=== PATIENT | female | born 1955 | race Caucasian/White ===

== ENCOUNTER 2020-07-31 13:54 | Outpatient (CLI) | payer MEDICARE, SELFPAY ==
--- NOTE | 2020-07-31 14:15 | USCV_ITS ---
Elizabeth Mercado Age: 64 Gender: F : 1955 Exam Date: 07/31/2020 14:23 Ordering Phys: Mick Ortega M.D ([email or web address]) Technologist: Socorro Greawl Exam Location: [facility] [place] Indication: SHORTNESS OF BREATH BP: 125 / 63 HR: 84 Rhythm: Sinus Technical Quality: Adequate MEASUREMENTS (Male / Female) Normal Values 2D ECHO LV Diastolic Diameter PLAX 3.5 cm 4.2 - 5.9 / 3.9 - 5.3 cm LV Systolic Diameter PLAX 2.3 cm IVS Diastolic Thickness 1.1 cm 0.6 - 1.0 / 0.6 - 0.9 cm IVS Systolic Thickness 1.3 cm LVPW Diastolic Thickness 0.9 cm 0.6 - 1.0 / 0.6 - 0.9 cm LVPW Systolic Thickness 1.1 cm RV Chamber Size 2.7 cm LVOT Diameter 2.0 cm LV Ejection Fraction 2D Teich 66.1 % LV Ejection Fraction MOD 2C 59.5 % LV Ejection Fraction 2C AL 61.5 % LA Diameter 2.8 cm Aorta at Sinotubular Diameter 3.0 cm M-MODE LV Diastolic Diameter MM 3.2 cm 4.2 - 5.9 / 3.9 - 5.3 cm LV Systolic Diameter MM 2.0 cm LV Ejection Fraction MM Teich 68.8 % IVS Diastolic Thickness MM 1.2 cm 0.6 - 1.0 / 0.6 - 0.9 cm IVS Systolic Thickness MM 1.3 cm LVPW Diastolic Thickness MM 1.2 cm 0.6 - 1.0 / 0.6 - 0.9 cm LVPW Systolic Thickness MM 1.4 cm Aortic Annulus Diameter 2.6 cm LA Ao Ratio MM 1.1 MV E Point Septal Separation 0.2 cm DOPPLER AV Peak Velocity 95.0 cm/s LVOT Peak Velocity 87.0 cm/s AV Area Cont Eq vti 2.5 cm squared AV Area Cont Eq pk 2.9 cm squared MV Area PHT 5.0 cm squared Mitral E to A Ratio 1.2 MV E' Velocity 53.0 cm/s Mitral E to MV E' Ratio 7.5 Mitral E to LV E' Lateral Ratio 8.8 Mitral E to LV E' Septal Ratio 6.4 TR Peak Velocity 260.3 cm/s TR Peak Gradient 27.1 mmHg Right Atrial Pressure 3.0 mmHg Pulmonary Artery Systolic Pressu 30.1 mmHg PV Peak Velocity 59.0 cm/s RV Acceleration Time 0.1 s RV Ejection Time 0.2 s RV AcT/ET 0.5 FINDINGS Left Ventricle Normal left ventricular size. LV systolic function is normal with EF of 60-65%. No regional wall motion abnormalities.Normal diastolic function. Right Ventricle The right ventricle is normal in size and function. Right Atrium The right atrium is normal in size. Left Atrium The left atrium is normal in size. Mitral Valve Structurally normal mitral valve without significant stenosis or prolapse. There is trace mitral regurgitation. Aortic Valve Structurally normal aortic valve without significant sclerosis or stenosis. There is no aortic regurgitation. Tricuspid Valve Structurally normal tricuspid valve without significant stenosis or regurgitation. Insufficient TR to calculate RVSP Pulmonic Valve Structurally normal pulmonic valve without significant stenosis. There is no pulmonic regurgitation. Pericardium Normal pericardium without effusion. Aorta Normal ascending aorta dimension. CONCLUSIONS LV systolic function is normal with EF of 60-65% Diastolic function is normal Trace mitral regurgitation No comparison studies are available. Mick Ortega MD (Electronically Signed) Final Date: 06 August 2020 19:34 S
== END 2020-07-31 13:55 | disposition home or self-care (01) ==
LOC: US 14:01
PROVIDERS: PCP Nurse Practitioner Family; Visit Provider Internal Medicine
DX: R06.02 Shortness of breath (principal)
CPT/HCPCS: 93306

== ENCOUNTER 2022-02-10 11:45 | Outpatient (CLI) | payer MEDICARE, SELFPAY ==
--- NOTE | 2022-02-10 12:00 | USR_ITS ---
PROCEDURE INFORMATION: Exam: US Duplex Lower Extremity Arteries Exam date and time: 02/10/2022 12:28 PM Age: 66 years old Clinical indication: Pain; Leg, lower; Bilateral; Additional info: M79.606 - pain in leg, unspecified TECHNIQUE: Imaging protocol: Real-time ultrasound scan of the arteries of the bilateral lower extremities with 2-D jha scale, color Doppler flow and spectral waveform analysis. Images documented and saved. COMPARISON: No relevant prior studies available. FINDINGS: Right external iliac artery: Proximal 118.4 cm/sec, mid 110.3 cm/sec, distal (mild-moderate irregular calcified plaque, mild spectral broadening) 98.6 cm/sec, biphasic. Right common femoral artery: 82.0 cm/sec. Right superficial femoral artery: Proximal SFA 104.7 cm/sec. Mid SFA 106.9 cm/sec. Distal SFA 69.1 cm/sec. Right popliteal artery: Proximal popliteal 63.7 cm/sec. Right calf/foot arteries: Distal [employer]IONAL TRAINING MANAGER 50.5 cm/sec. Dorsalis pedis 42.7 cm/sec. Right ankle brachial index: 1.1. Left external iliac artery: Proximal (mild-moderate calcified plaque, mild spectral broadening) 110.5 cm/sec, mid (mild-moderate irregular calcified plaque) 106.7 cm/sec, distal 115.0 cm/sec, triphasic. Left common femoral artery: 55.9 cm/sec, biphasic. Left superficial femoral artery: Proximal SFA 115 point cm/sec, triphasic. Mid SFA 93.7 cm/sec, biphasic. Distal SFA 83.8 cm/sec. Left popliteal artery: Proximal popliteal 65.3 cm/sec. Left calf/foot arteries: Proximal [employer] TRAINING MANAGER 49.7 cm/sec. Dorsalis pedis cm/sec. 52.0. Left ankle brachial index: 1.1. US/[place] [id number] IMPRESSION: No hemodynamically significant stenosis (less than 50%) by peak systolic velocity criteria.
== END 2022-02-10 11:46 | disposition home or self-care (01) ==
PROVIDERS: PCP Nurse Practitioner Family; Visit Provider Internal Medicine
DX: M79.606 Pain in leg, unspecified (principal); I73.9 Peripheral vascular disease, unspecified
CPT/HCPCS: 93925

== ENCOUNTER → 2024-04-05 11:35 | Outpatient (BNVA) | payer MEDICARE, SELFPAY | PROVIDERS: PCP Nurse Practitioner Family; Referring Provider Nurse Practitioner Family; Visit Provider Student in an Organized Health Care Education/Training Program | DX: R12 Heartburn; K92.1 Melena | CPT/HCPCS: 99204 ==

== ENCOUNTER 2024-04-30 10:48 | Day surgery (SDC) | payer MEDICARE, SELFPAY ==
[2024-04-30 11:06] VITALS: BP 104/62; PULSE 74; RESP 18; TEMP 36.2; O2SAT 93; BMI 20.9
[2024-04-30] MEDS: sodium chloride 0.9% 1,000 ML 30 ML IV (11:07)
--- NOTE | 2024-04-30 11:40 | P.ANESASSM_ITS ---
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 She has an appointment scheduled with cardiology in May (2023). None reported Hepatic None reported GI Gastroesophageal Reflux Disease Metabolic None reported Musc/skel None reported Neuropsych None reported Anesthetic Plan ASA status: 3 Anesthesia: Anesthesia Evaluation and MAC Other: Discussed pt's cardiac symptoms with Dr Pierce and Dr Mnotejo, procedure cancelled for today and pt instructed to follow up to reschedule procedure after seeing cardiology and to go to the ER if she experiences chest pain again. Risk of > 500 ml blood loss (7ml/kg in children): No Medications/Allergies Home Medications Medication Instructions Recorded Confirmed Last Taken Type metoprolol tartrate 25 mg tablet 12.5 mg (1/2 x 25 mg) PO BID #90 08/31/21 04/30/24 04/30/24 Rx tabs 0830 albuterol sulfate 90 mcg/actuation 2 puff inhalation PRN PRN 04/25/24 04/25/24 04/29/24 History aerosol inhaler Shortness Of Breath simvastatin 40 mg tablet 40 mg PO DAILY 1104/25/24 04/28/24 History tiotropium bromide 18 mcg capsule 18 mcg inhalation DAILY 04/25/24 04/25/24 04/30/24 08:30 History with inhalation device (Spiriva with HandiHaler) Allergies Allergy/AdvReac Type Severity Reaction Status Date / Time codeine Allergy ADR/ALGY-Pa Verified 01/04/22 13:06 [From Allerfrim with Codeine] lpitations [facility] Anesthesia Medical History Tobacco abuse Surgical History H/O: hysterectomy Family History Father CAD (coronary artery disease) Social History Smoking and tobacco/nicotine status: never used tobacco/nicotine Data Anesthesia Cardiac Studies: Echocardiogram Ultrasound 07/31/20 Cardiac Event Monitor 07/10/20
--- NOTE | 2024-04-30 11:58 | W.PM.OPSUD ---
Surgery/Procedure H&P Update DATE OF PROCEDURE: April 30, 2024 DATE H&P PERFORMED: 04/05/24 H&P UPDATE INFORMATION: I have reviewed H&P completed within last 30 days, I have examined patient prior to procedure and No changes to prior documentation PREOP DIAGNOSIS: gerd, screening PLANNED PROCEDURE: Operation Date: 04/30/24 12:00 Proposed Procedures p EGD(Not Applicable) - Jerel Montejo MD s Colonoscopy 39612, 52072, G0121, R12, Z12.11(Not Applicable) - Jerel Montejo MD
== END 2024-04-30 11:59 | disposition home or self-care (01) ==
PROVIDERS: PCP Nurse Practitioner Family; Visit Provider Student in an Organized Health Care Education/Training Program
PROC: 0DJ08ZZ Inspection of Upper Intestinal Tract, Via Natural or Artificial Opening Endoscopic (ICD-10-PCS; CPT 43235; principal; 2024-04-30 12:00)
PROC: 0DJD8ZZ Inspection of Lower Intestinal Tract, Via Natural or Artificial Opening Endoscopic (ICD-10-PCS; CPT 45378; 2024-04-30 12:00)
DX: Z01.818 Encounter for other preprocedural examination (principal)
CPT/HCPCS: J2704; J7030

== ENCOUNTER → 2024-05-28 14:46 | Outpatient (BNVA) | payer MEDICARE, SELFPAY | PROVIDERS: PCP Nurse Practitioner Family; Referring Provider Nurse Practitioner Family; Visit Provider Internal Medicine Cardiovascular Disease | DX: R07.89 Other chest pain (principal); Z72.0 Tobacco use; R00.2 Palpitations; E78.5 Hyperlipidemia, unspecified | CPT/HCPCS: 99215 ==

== ENCOUNTER 2024-06-05 07:29 | Outpatient (CLI) | payer MEDICARE, SELFPAY ==
[2024-06-05 07:37] VITALS: BMI 21.1
--- NOTE | 2024-06-05 07:42 | ECG_ITS ---
[facility]05 Pat Name: Elizabeth Mercado Department: Room: Gender: Female Construction Contractor: : 1955 Requested By: Juno Moon Order Number: [id number] Vaughn MD: Juno Moon M.D. Interpretive Statements Lung unchanged pre/post procedure; Intraprocedure shortess of breath; Symptoms resoled by discharge PROCEDURE: At the baseline, the patient's blood pressure was 127/85 with a heart rate of 84. The baseline electrocardiogram showed normal sinus rhythm with normal ST-Ts. Incomplete right bundle branch block pattern. The patient exercised for 3 minutes on a standard Kevin protocol. Patient attained a maximum heart rate of 147 beats per minute(98% of the maximum predicted heart rate) with a blood pressure at the peak exercise of 201/89 mm Hg. The EKG at the peak exercise revealed no significant changes. Patient did not have any chest pain or any significant cardiac arrhythmias with the exercise During the recovery phase, there were no new changes. Blood pressure at the end of the recovery phase was 131/79 mm Hg with a heart rate of 86 per minute. CONCLUSION: 1. Normal EKG response to treadmill exercise 2. No exercise-induced chest pain or cardiac arrhythmia 3. Impaired exercise tolerance, attained a maximum of 4.5 METs 4. Hypertensive response to exercise 5. The maximum oxygen consumption was 16.1 Electronically Signed On 06-10-2024 17:25:55 HOSPITAL INTERN by Juno Moon M.D. [email or web address]
--- NOTE | 2024-06-05 07:44 | NMCV_ITS ---
NM theresa perf SPECT r/s* [id number] Elizabeth Mercado Age: 68 Gender: F : 1955 Exam Date: 06/05/2024 07:44 Ordering Phys: Juno Moon MD ([email or web address]) Technologist: MURPHY Lord Exam Location: [facility] Indications: cp STRESS TEST Please see separate stress test report in [facility] for full findings IMAGE PROTOCOL Rest/Stress 1 Exercise Day Radiopharmaceutical Dose (mCi) Administration Site Administered by Rest: Tc-99m 10.9 IV Janel Krishna, SUPERVIS[employer] Sestamibi Stress:Tc-99m 32.6 IV Janel Krishna, SUPERVISOR [employer] Sestamibi Rest: 05-Jun-2024 60 Discovery 630 Stress: 05-Jun-2024 30 Discovery 630 Radiopharmaceutical was injected at 87 % maximum heart rate. Images obtained in supine and prone position. SPECT RESULTS Technical Quality: Good Raw Data Analysis: Normal Image Corrections: No attenuation or motion correction applied Summed Stress Score: 0 Summed Rest Score: 0 Summed Difference Score: 0 PERFUSION FINDINGS Fairly uniform myocardial tracer uptake with no significant Perfusion normalities FUNCTIONAL RESULTS (calculated via Gated SPECT) Stress Image LV EF (%): 93 Stress EDV (mL):28 TID: 1 Stress ESV (mL):2 FUNCTIONAL FINDINGS: Segmental wall motion analysis revealing no gross wall motion abnormalities IMPRESSIONS 1. Myocardial perfusion imaging revealing uniform myocardial tracer uptake with no significant Perfusion abnormalities 2. Normal LV ejection fraction of 93% 3. LV wall motion analysis revealing no gross wall motion abnormalities. 4. Normal LV volume Low probability for coronary ischemia, based on the above findings Dr Juno Moon MD FACC (Electronically Signed) Final Date: 05 June 2024 17:33 S
[2024-06-05 09:19] VITALS: BP 165/86; PULSE 89
== END 2024-06-05 07:30 | disposition home or self-care (01) ==
PROVIDERS: PCP Nurse Practitioner Family; Visit Provider Internal Medicine Cardiovascular Disease
DX: R07.9 Chest pain, unspecified (principal)
CPT/HCPCS: 36415; 78452; 93017; A9500

== ENCOUNTER → 2024-11-29 09:49 | Outpatient (BNVA) | payer MEDICARE, SELFPAY | PROVIDERS: PCP Nurse Practitioner Family; Visit Provider Nurse Practitioner Family | DX: R07.89 Other chest pain (principal); R00.2 Palpitations; I73.9 Peripheral vascular disease, unspecified; E78.5 Hyperlipidemia, unspecified; Z72.0 Tobacco use | CPT/HCPCS: 99214 ==

== ENCOUNTER → 2025-05-09 10:09 | Outpatient (BNVA) | payer MEDICARE, SELFPAY | PROVIDERS: PCP Nurse Practitioner Family; Visit Provider Internal Medicine Cardiovascular Disease | DX: R00.2 Palpitations (principal); R07.89 Other chest pain; E78.5 Hyperlipidemia, unspecified; R53.83 Other fatigue; J44.9 Chronic obstructive pulmonary disease, unspecified; Z72.0 Tobacco use; N18.9 Chronic kidney disease, unspecified | CPT/HCPCS: 36415; 84443; 99214 ==